=== PATIENT | male | born 2000 ===

== ENCOUNTER 2019-11-14 01:29 | Emergency (ER) | payer SELFPAY ==
[2019-11-14] MEDS ORDERED: Ondansetron PF 4 MG/2 ML Vial ONE (01:36)
== END 2019-11-14 02:11 | disposition home or self-care (01) ==
LOC: ERS 01:29
DX: F10.129 Alcohol abuse with intoxication, unspecified (principal); F17.200 Nicotine dependence, unspecified, uncomplicated
CPT/HCPCS: 96361; 96374; J2405